=== PATIENT | female | born 1995 | race Caucasian/White ===

== ENCOUNTER 2017-04-25 15:50 | Emergency (ER) | payer OTHER ==
[~2017-04-25] VITALS: Ht 162.6 cm; Wt 81.6 kg
[2017-04-25 16:05] VITALS: BP_SYST 115
[2017-04-25] MEDS ORDERED: IBUPROFEN 800 MG TABLET PO ONE (17:45)
[2017-04-25] MEDS ORDERED: BACITRACIN 1 GM OINT TP ONE (17:45)
[2017-04-25] MEDS ORDERED: LIDOCAINE 2%, 20 ML MDV INJ ONE (17:45)
[2017-04-25 18:56] VITALS: BP_SYST 113
== END 2017-04-25 18:56 | disposition home or self-care (01) ==
LOC: SED 15:50
DX: S91.112A Laceration without foreign body of left great toe without damage to nail, initial encounter (principal); X58.XXXA Exposure to other specified factors, initial encounter; Y93.89 Activity, other specified; Y92.89 Other specified places as the place of occurrence of the external cause; Y99.8 Other external cause status
CPT/HCPCS: 12001; 73660; 81025; 99284; J2001